=== PATIENT | female | born 1995 | race Caucasian/White ===

== ENCOUNTER 2018-08-05 22:20 | Emergency (ER) | payer OTHER ==
[2018-08-05 23:58] LABS: Absolute Monocytes 1.3 K/uL (0.1-1.3); Absolute Neutrophil 7.7 K/uL (1.8-8.0); Basophils % 0.5 % (0-1.3); Eosinophils % 6.4 % (0-4.4); Hematocrit 39.1 % (36.0-45.0); Lymphocytes % 16.9 % (15.3-44.8); MPV 8.2 fL (7.6-11.3); Monocytes % 11.1 % (3.3-12.3); RBC Red Blood Cell Count 4.34 M/uL (3.86-4.86)
[2018-08-06 00:07] LABS: Urine Blood 3+ (NEG); Urine Glucose NEGATIVE (NEG); Urine Protein TRACE (NEG); Urine pH 6.5 (5.0-7.0)
[2018-08-06 00:23] LABS: BUN Blood Urea Nitrogen 9 mg/dL (7-18); Bicarbonate 24 mmol/L (21-32); Glucose Level 97 mg/dL (74-106); HCG, Quantitative 30062 mIU/mL (1-3); Potassium 3.6 mmol/L (3.5-5.1); Sodium Level 142 mmol/L (136-145)
--- NOTE | 2018-08-06 01:48 | ER ---
Nurse's Notes [facility] Name: Concepcion Griggs Age: 23 yrs Sex: Female : 1995 Arrival Date: 08/05/2018 Time: 22:22 Bed 8 Private MD: Diagnosis: Threatened Presentation: 08/05 22:54 Presenting complaint: Patient states: "I am having heavy bleeding about 1 hour prior to jd3 arrival. it has soaked my underwear and my pants. I have had 2 miscarriages before.". Transition of care: patient was not received from another setting of care. Onset of symptoms was August 05, 2018. Risk Assessment: Do you want to hurt yourself or someone else? Patient reports no desire to harm self or others. Initial Sepsis Screen: Does the patient meet any 2 criteria? No. Patient's initial sepsis screen is negative. Does the patient have a suspected source of infection? No. Patient's initial sepsis screen is negative. Care prior to arrival: None. 22:54 Method Of Arrival: Ambulatory j 22:54 Acuity: JOSE 3 jd3 Triage Assessment: 23:07 : Reports vaginal bleeding that is heavy flow. 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 - Social history:: Smoking status: Patient uses tobacco products, stopped in April 2018.. - Ebola Screening: : Patient negative for fever greater than or equal to 101.5 degrees Fahrenheit, and additional compatible Ebola Virus Disease symptoms. Screenin:06 Fall Risk Ambulatory Aid- None/Bed Rest/Nurse Assist (0 pts). Gait- Normal/Bed jd3 Rest/Wheelchair (0 pts) Mental Status- Oriented to own ability (0 pts). Total Lafleur Fall Scale indicates No Risk (0-24 pts). 23:07 Abuse screen: Denies threats or abuse. Nutritional screening: No deficits noted. jd3 Tuberculosis screening: No symptoms or risk factors identified. Assessment: 22:45 General: Appears in no apparent distress. comfortable, Behavior is calm, cooperative, aa1 appropriate for age. Pain: Denies pain. Neuro: Level of Consciousness is awake, alert, obeys commands, Oriented to person, place, time, situation, Moves all extremities. Gait is steady. Cardiovascular: Heart tones S1 S2 present Rhythm is regular. Respiratory: Airway is patent Respiratory effort is even, unlabored, Respiratory pattern is regular, symmetrical. GI: Abdomen is non-distended, Abd is soft and non tender X 4 quads. : Reports vaginal bleeding that is bright red, with clots, moderate flow, Denies cramping. EENT: No signs and/or symptoms were reported regarding the EENT system. Derm: Skin is intact, is healthy with good turgor, Skin is pink, warm \\T\\ dry. Musculoskeletal: Circulation, motion, and sensation intact. Capillary refill < 3 seconds. 08/06 00:37 Reassessment: Patient appears in no apparent distress at this time. Patient and/or aa1 family updated on plan of care and expected duration. Pain level reassessed. Patient is alert, oriented x 3, equal unlabored respirations, skin warm/dry/pink. Blood work resulted; OB u/s ordered. Pt reports vaginal bleeding has stopped Patient denies pain at this time. 01:17 Reassessment: Patient appears in no apparent distress at this time. Patient and/or aa1 family updated on plan of care and expected duration. Pain level reassessed. Patient is alert, oriented x 3, equal unlabored respirations, skin warm/dry/pink. bindery library technical assistant at bedside for study. 02:30 Reassessment: Patient appears in no apparent distress at this time. Patient and/or jd3 family updated on plan of care and expected duration. Pain level reassessed. Patient is alert, oriented x 3, equal unlabored respirations, skin warm/dry/pink. Vital Signs: 08/05 23:01 BP 122 / 60; Pulse 103; Resp 16 S; Temp 98.6(O); Pulse Ox 98% on R/A; Weight 46.27 kg jd3 (R); Height 57 in. (144.78 cm) (R); Pain 0/10; 08/06 00:01 BP 118 / 74; Pulse 98; Resp 16; Pulse Ox 99% on R/A; mt 08/05 23:01 Body Mass Index 22.07 (46.27 kg, 144.78 cm) jd3 ED Course: 08/05 22:22 Patient arrived in ED. am2 22:56 Triage completed. jd3 22:59 Nato Tapia PA is PHCP. jr8 22:59 Kenneth Childs MD is Attending Physician. jr8 22:59 Arielle Grider, RN is Primary Nurse. aa1 23:00 Urine collected: clean catch specimen. aa1 23:04 Arm band placed on. jd3 23:06 Patient has correct armband on for positive identification. Placed in gown. Bed in low jd3 position. Call light in reach. Side rails up X 1. Adult w/ patient. 23:15 Initial lab(s) drawn, by ED staff, sent to lab. Inserted saline lock: 22 gauge in right aa1 antecubital area, using aseptic technique. ,using aseptic technique. by Toby Mejia RN Blood collected. 08/06 01:23 Ultrasound completed. Patient tolerated well. aa4 01:24 OB Limited US In Process Unspecified. EDMS 02:31 No provider procedures requiring assistance completed. IV discontinued, intact, jd3 bleeding controlled, No redness/swelling at site. Pressure dressing applied. Administered Medications: No medications were administered Outcome: 01:48 Discharge ordered by . jr8 02:31 Discharged to home ambulatory, with family. jd3 02:31 Condition: stable 02:31 Discharge instructions given to patient, family, Instructed on discharge instructions, follow up and referral plans. Demonstrated understanding of instructions, follow-up care. 02:32 Patient left the ED. jd3 Signatures: Dispatcher [employer] EDMS Arielle Grider, RN RN aa1 Rebecca Chandra aa4 Nato Tapia PA PA jr8 Rebecca Nazario am2 Adela Patino mt, Jonathon, RN RN jd3
--- NOTE | 2018-08-06 01:48 | EDPHYS ---
Physician Documentation [facility] Name: Concepcion Griggs Age: 23 yrs Sex: Female : 1995 Arrival Date: 08/05/2018 Time: 22:22 Bed 8 Private MD: ED Physician Kenneth Childs HPI: 08/06 00:57 This 23 yrs old Female presents to ER via Ambulatory with complaints of jr8 Vaginal Bleeding, 14 WEEKS PREG. 00:57 The patient presents with vaginal bleeding that is light. Onset: The symptoms/episode jr8 began/occurred acutely, today. Modifying factors: The symptoms are alleviated by nothing, the symptoms are aggravated by nothing. Associated signs and symptoms: The patient has no apparent associated signs or symptoms. Severity of symptoms: At their worst the symptoms were mild, in the emergency department the symptoms have improved. The patient has experienced a previous episode. The patient has not recently seen a physician. Stated that she had gone to the bathroom and shortly after had bleeding that soaked her underwear. No abdominal cramping. Stated that it is much better now. Approximately 15 weeks gestation . 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 - Social history:: Smoking status: Patient uses tobacco products, stopped in April 2018.. - Ebola Screening: : Patient negative for fever greater than or equal to 101.5 degrees Fahrenheit, and additional compatible Ebola Virus Disease symptoms. ROS: 08/06 00:57 Eyes: Negative for injury, pain, redness, and discharge, ENT: Negative for injury, jr8 pain, and discharge, Neck: Negative for injury, pain, and swelling, Cardiovascular: Negative for chest pain, palpitations, and edema, Respiratory: Negative for shortness of breath, cough, wheezing, and pleuritic chest pain, Abdomen/GI: Negative for abdominal pain, nausea, vomiting, diarrhea, and constipation, Back: Negative for injury and pain, MS/Extremity: Negative for injury and deformity, Skin: Negative for injury, rash, and discoloration, Neuro: Negative for headache, weakness, numbness, tingling, and seizure. : Positive for vaginal bleeding. Exam: 00:57 Eyes: Pupils equal round and reactive to light, extra-ocular motions intact. Lids and jr8 lashes normal. Conjunctiva and sclera are non-icteric and not injected. Cornea within normal limits. Periorbital areas with no swelling, redness, or edema. ENT: Nares patent. No nasal discharge, no septal abnormalities noted. Tympanic membranes are normal and external auditory canals are clear. Oropharynx with no redness, swelling, or masses, exudates, or evidence of obstruction, uvula midline. Mucous membranes moist. Neck: Trachea midline, no thyromegaly or masses palpated, and no cervical lymphadenopathy. Supple, full range of motion without nuchal rigidity, or vertebral point tenderness. No Meningismus. Cardiovascular: Regular rate and rhythm with a normal S1 and S2. No gallops, murmurs, or rubs. Normal PMI, no JVD. No pulse deficits. Respiratory: Lungs have equal breath sounds bilaterally, clear to auscultation and percussion. No rales, rhonchi or wheezes noted. No increased work of breathing, no retractions or nasal flaring. Abdomen/GI: Soft, non-tender, with normal bowel sounds. No distension or tympany. No guarding or rebound. No evidence of tenderness throughout. Back: No spinal tenderness. No costovertebral tenderness. Full range of motion. Skin: Warm, dry with normal turgor. Normal color with no rashes, no lesions, and no evidence of cellulitis. MS/ Extremity: Pulses equal, no cyanosis. Neurovascular intact. Full, normal range of motion. Neuro: Awake and alert, GCS 15, oriented to person, place, time, and situation. Cranial nerves II-XII grossly intact. Motor strength 5/5 in all extremities. Sensory grossly intact. Cerebellar exam normal. Normal gait. Vital Signs: 08/05 23:01 BP 122 / 60; Pulse 103; Resp 16 S; Temp 98.6(O); Pulse Ox 98% on R/A; Weight 46.27 kg jd3 (R); Height 57 in. (144.78 cm) (R); Pain 0/10; 08/06 00:01 BP 118 / 74; Pulse 98; Resp 16; Pulse Ox 99% on R/A; mt 08/05 23:01 Body Mass Index 22.07 (46.27 kg, 144.78 cm) jd3 MDM: 08/05 22:59 Patient medically screened. [facility] 08/06 01:47 Data reviewed: vital signs, nurses notes, lab test result(s), radiologic studies, [facility] ultrasound, and as a result, I will discharge patient. Data interpreted: Pulse oximetry: on room air is 99 %. Interpretation: normal. Counseling: I had a detailed discussion with the patient and/or guardian regarding: the historical points, exam findings, and any diagnostic results supporting the discharge/admit diagnosis, lab results, radiology results, the need for outpatient follow up, an OB/Gyne specialist, to return to the emergency department if symptoms worsen or persist or if there are any questions or concerns that arise at home. 08/05 22:59 Order name: Quantitative Hcg; Complete Time: 00:52 [facility] 08/05 22:59 Order name: Abo/rh Typing; Complete Time: 00:52 [facility] 08/05 22:59 Order name: Basic Metabolic Panel; Complete Time: 00:52 [facility] 08/05 22:59 Order name: CBC with Diff; Complete Time: 00:12 08/05 23:45 Order name: Urine Dipstick--Ancillary (enter results); Complete Time: 00:12 [facility] 08/05 23:45 Order name: Urine --Ancillary (enter results); Complete Time: 00:12 [facility] 08/05 22:59 Order name: Urine Test (obtain specimen); Complete Time: 23:39 [facility] 08/05 22:59 Order name: IV Saline Lock; Complete Time: 23:24 [facility] 08/05 22:59 Order name: Labs collected and sent; Complete Time: 23:24 [facility] 08/05 22:59 Order name: NPO; Complete Time: 22:59 [facility] 08/05 22:59 Order name: Urine Dipstick-Ancillary (obtain specimen); Complete Time: 23:39 [facility] 08/06 00:34 Order name: OB Limited [facility]8 Administered Medications: No medications were administered Disposition: 05:21 Co-signature as Attending Physician, Kenneth Childs MD I agree with the assessment and tw4 plan of care. Disposition: 08/06/18 01:48 Discharged to Home. Impression: Threatened . - Condition is Stable. - Discharge Instructions: Threatened Miscarriage, Vaginal Bleeding During , Second Trimester, Pelvic Rest. - Medication Reconciliation Form, Thank You Letter, Antibiotic Education, Prescription Opioid Use form. - Follow up: Private Physician; When: 2 - 3 days; Reason: Recheck today's complaints, Continuance of care, Re-evaluation by your physician. - Problem is new. - Symptoms have improved. Signatures: Dispatcher [employer] EDMS Nato Tapia PA PA jr8 Toby Mejia RN RN Kenneth Oleary MD MD tw4 Corrections: (The following items were deleted from the chart) 02:32 01:48 08/06/2018 01:48 Discharged to Home. Impression: Threatened . Condition jd3 is Stable. Forms are Medication Reconciliation Form, Thank You Letter, Antibiotic Education, Prescription Opioid Use. Follow up: Private Physician; When: 2 - 3 days; Reason: Recheck today's complaints, Continuance of care, Re-evaluation by your physician. Problem is new. Symptoms have improved. jr8
--- NOTE | 2018-08-06 08:12 | RAD REPORT ---
EXAM DESCRIPTION: US - OB Limited - 08/06/2018 1:25 am CLINICAL HISTORY: VAGINAL BLEEDING , pelvic pain COMPARISON: No comparisons FINDINGS: A limited examination was requested. A single cephalic presenting gestation is identified. Heart rate normal. anatomy and biometry was not requested. crown-rump length is 9.3 cm corresponding to 15 weeks 1 day gestational age. NADER 01/27/2019. The placenta is grade 0, posterior in location. No placenta previa. The amniotic fluid volume is normal. The maternal adnexa show no worrisome findings. IMPRESSION: Limited obstetrical sonography as detailed above.
== END 2018-08-06 02:32 | disposition home or self-care (01) ==
LOC: ER 22:20
DX: O20.0 Threatened abortion (principal); O26.892 Other specified pregnancy related conditions, second trimester; Z3A.15 15 weeks gestation of pregnancy; Q25.6 Stenosis of pulmonary artery; Z87.891 Personal history of nicotine dependence
CPT/HCPCS: 36415; 76815; 80048; 81003; 81025; 84702; 85025; 86900; 86901; 99283

== ENCOUNTER 2018-12-06 15:37 | Observation (INO) | payer BC ==
[2018-12-06] MEDS ORDERED: TERBUTALINE SULF 1 MG/1ML SQ ONE (16:14)
[2018-12-06] MEDS ORDERED: BUTORPHANOL 1 MG/ML INJ IV ONE (16:58)
[2018-12-06] MEDS ORDERED: PROMETHAZINE 25 MG/ML VIAL IM ONE (16:58)
[2018-12-06] MEDS ORDERED: BETAMET ACET/BETAMET NA PH 6 MG/ML VIAL IM ONE (16:58)
[2018-12-06] MEDS ORDERED: BUTORPHANOL 1 MG/ML INJ IM ONE (17:00)
[2018-12-06] MEDS ORDERED: ACETAMINOPHEN 325 MG TABLET PO PRN (17:42)
[2018-12-06] MEDS ORDERED: hydrOXYzine HCl 25 MG TAB PO ONE (18:00)
[2018-12-06 19:11] LABS: Urine Appearance CLOUDY; Urine Bilirubin NEGATIVE (NEG); Urine Blood NEGATIVE (NEG); Urine Color YELLOW; Urine Glucose NEGATIVE (NEG); Urine Protein 1+ (NEG); Urine Urobilinogen 0.2 mg/dL (0.2-1.0)
[2018-12-06 20:01] LABS: Urine Bacteria >50 /HPF (<20); Urine Culture Reflex Order REFLEXED; Urine Mucus 2+ /HPF (NONE SEEN); Urine RBC <5 /HPF (NONE SEEN)
[2018-12-06] MEDS: NITROFURAN MACRO 100 MG CAP PO SCH (21:00)
--- NOTE | 2018-12-07 06:46 | P.PN ---
Date of Service: 12/07/18 S- no complaints, does feel some tightening O-Cx, no change, pp high, but contractions may be q4-5 minutes on latest monitor A-uterine irritibility P-Try nifedipine for ctx and observe effect
[2018-12-07] MEDS: NIFEdipine 10 MG CAP PO SCH ×2 (07:37→13:20)
[2018-12-07] MEDS: NITROFURAN MACRO 100 MG CAP PO SCH (07:37)
[2018-12-07] MEDS ORDERED: BETAMET ACET/BETAMET NA PH 6 MG/ML VIAL IM ONE (17:10)
== END 2018-12-07 17:35 | disposition home or self-care (01) ==
LOC: RAD 15:37 → 2ND-WC 17:39
PROVIDERS: ADMIT Specialist; ATTEND Specialist
DX: O47.03 False labor before 37 completed weeks of gestation, third trimester (principal); Z3A.32 32 weeks gestation of pregnancy
CPT/HCPCS: 81001; 87086; 87088; G0378; J0595; J2550; J3105

== ENCOUNTER 2019-01-24 05:06 | Inpatient (IN) | payer BC, OTHER ==
--- NOTE | 2019-01-22 15:10 | PREOPHP ---
Date of Admission: 01/24/2019 Subjective: Ms. Griggs is a 23-year-old female, 3, para 0-0-2-0, at approx imately 39 weeks' gestation. She is admitted for primary section secondary to term pregnanc y with suspected cephalopelvic disproportion. She is scheduled for primary section. has been active. She denies any vaginal bleeding or spotting. Past Medical History: Please see record. Review of Systems: She reports no recent cough, cold, fever, or chills. No recent nausea or vomiting. She denies any b reast lumps or knots. She denies any bowel or bladder issues. has been active. She denies a ny vaginal bleeding. Physical Examination: General: Reveals a short-statured female. Neck: Supple without adenopathy or thyromegaly. Lungs: Clear. Cardiac: Regular rate and rhythm without murmurs. Breasts: Not examined. Abdomen: Estimated weight is 6+ to 7+ pounds. Pelvic not performed today. Vertex has been -2 station, not well applied to the cervix and on abdominal exam today. Vertex is above the pubic bone . Extremities: No cyanosis, clubbing, or edema. Impression: A 39-week , suspected cephalopelvic disproportion. Plan: Because of suspected CPD, we have elected to proceed with primary section. The risks and benefits have been discussed and the patient has signed operative permit in my presence. MANJINDER/LUANNE Voice ID: [id number]
[2019-01-23 09:08] LABS: RPR Titer ND
[2019-01-23 09:16] LABS: Absolute Lymphocytes (CBC) 1.4 K/uL (0.7-4.9); Basophils % 0.6 % (0-1.3); Eosinophils % 5.6 % (0-4.4); Hematocrit 41.4 % (36.0-45.0); MPV 9.7 fL (7.6-11.3); Monocytes % 8.6 % (3.3-12.3); RBC Red Blood Cell Count 4.75 M/uL (3.86-4.86)
[2019-01-23 09:24] LABS: Urine Appearance CLOUDY; Urine Bilirubin NEGATIVE (NEG); Urine Blood 1+ (NEG); Urine Color DK YELLOW; Urine Glucose NEGATIVE (NEG); Urine Protein 1+ (NEG); Urine Specific Gravity >=1.030 (1.005-1.030); Urine Urobilinogen 0.2 mg/dL (0.2-1.0)
[2019-01-23 09:37] LABS: Urine Bacteria 20-50 /HPF (<20)
[2019-01-23 09:38] LABS: Urine Amorphous Sediment 2+ /HPF (NONE SEEN); Urine Culture Reflex Order REFLEXED
[2019-01-23 22:02] LABS: RPR (Rapid Plasma Reagin) NON-REACT (NON-REACT)
[2019-01-24] MEDS ORDERED: Ringers Lactate 1,000 ML IV PRN (05:29)
[2019-01-24] MEDS ORDERED: NA CIT/CITRIC AC 30 ML ORAL UDC PO ONE (05:35)
[2019-01-24] MEDS ORDERED: Ringers Lactate 1,000 ML IV SCH (06:00)
[2019-01-24] MEDS ORDERED: METOCLOPRAMIDE 10 MG/2mL INJ IV SCH (06:00)
[2019-01-24] MEDS ORDERED: CLINDAMYCIN INJ 600 MG in NA CHLORIDE 0.9% 50 ML IV ONE (06:30)
[2019-01-24] MEDS ORDERED: GENTAMICIN 80 MG/100 ML BAG 80 MG/100 ML BAG IV ONE (06:30)
[2019-01-24] MEDS ORDERED: MIDAZOLAM HCL 2 MG/2 ML INJ ONE (08:21)
[2019-01-24] MEDS ORDERED: OXYTOCIN 10 UNIT/ML ML IV ONE (08:21)
[2019-01-24] MEDS ORDERED: Phenylephrine HCl 10 MG/ML 1 ML VIAL ONE (08:21)
[2019-01-24] MEDS ORDERED: MORPHINE SULFATE/PF 1 MG/ML (10 ML AMP) ONE (08:21)
[2019-01-24] MEDS ORDERED: PROPOFOL 200 MG/20 ML VIAL IV ONE (08:21)
[2019-01-24] MEDS ORDERED: FENTANYL CITR 250 MCG/5 ML ONE (08:21)
[2019-01-24] MEDS ORDERED: EPHEDRINE SULF 50 MG/ML VIAL ONE (08:21)
[2019-01-24] MEDS ORDERED: KETAMINE HCL 500 MG/5 ML VIAL ONE (08:29)
[2019-01-24] MEDS ORDERED: METHYLERGONOVINE 0.2MG/ML AMP IM PRN (08:43)
[2019-01-24] MEDS ORDERED: ONDANSETRON 4 MG (ODT) TAB PO PRN (08:43)
[2019-01-24] MEDS ORDERED: METHYLERGONOVINE 0.2 MG TAB PO PRN (08:43)
[2019-01-24] MEDS ORDERED: CARBOPROST TROME 250 MCG/ML IM PRN (08:43)
[2019-01-24] MEDS ORDERED: Oxycodone HCl/Acetaminophen 1 TAB TAB PO PRN (08:43)
[2019-01-24] MEDS ORDERED: SUCCINYLCHOLINE 20 MG/ML (10 ML) IV ONE (08:47)
--- NOTE | 2019-01-24 08:49 | P.BOP ---
Preoperative diagnosis: 39 week , CPD Postoperative diagnosis: Same, viable male Primary procedure: Designer/Writer: Odalis Guthrie Estimated blood loss: Less than 800ml Specimen: placenta Anesthesia: Spinal Drain(s): Urinary catheter Transferred to: Other (276) Condition: Good
[2019-01-24] MEDS ORDERED: FAMOTIDINE 20 MG/2 ML VIAL IV SCH (09:00)
[2019-01-24] MEDS: OXYTOCIN/LR 20 UNIT/1,000 ML BAG IV SCH ×2 (09:00→16:45)
[2019-01-24] MEDS: KETOROLAC 30 MG/ML INJ IV PRN ×2 (10:00→16:50)
[2019-01-24] MEDS ORDERED: PROMETHAZINE 25 MG/ML VIAL IV ONE (10:25)
[2019-01-24] MEDS ORDERED: PROMETHAZINE 25 MG/ML VIAL IV PRN (10:25)
[2019-01-24] MEDS ORDERED: PROMETHAZINE 25 MG/ML VIAL ONE (10:47)
[2019-01-24 14:40] VITALS: BMI 22.9
[2019-01-25] MEDS: OXYTOCIN/LR 20 UNIT/1,000 ML BAG IV SCH ×3 (00:05→17:00)
[2019-01-25 05:39] LABS: Absolute Lymphocytes (CBC) 1.3 K/uL (0.7-4.9); Basophils % 0.4 % (0-1.3); Eosinophils % 6.3 % (0-4.4); Hematocrit 28.3 % (36.0-45.0); Lymphocytes % 10.5 % (15.3-44.8); MPV 9.4 fL (7.6-11.3); Monocytes % 10.9 % (3.3-12.3)
--- NOTE | 2019-01-25 06:43 | P.PN ---
Date of Service: 01/25/19 S-No complaints, bleeding minimal, no pain O-Afeb, vs stable. H/H dropped much more than expected from surgery, despite denials about increased loss by staff/patient. A-PO anemia P-Routine care, IV/soler out, ambulate, advance diet.
[2019-01-25] MEDS: IBUPROFEN 400 MG TAB PO PRN ×2 (08:11→16:02)
[2019-01-25 18:40] LABS: HBsAG Nonreactive (Nonreactive)
[2019-01-26] MEDS: IBUPROFEN 400 MG TAB PO PRN (03:56)
[2019-01-26 07:23] VITALS: BP 115/58; TEMP 97; O2SAT 97
--- NOTE | 2019-01-26 07:36 | DS ---
Final Hospital Discharge Diagnoses: 39-week , cephalopelvic disproportion, delivery of viab le male infant. Complications: Postoperative blood loss anemia. Procedures: Spinal block anesthesia, primary section, delivery of viable male . Hospital Course: The patient is a 23-year-old female, 3, para 0-0-2-0 at 3 9 weeks gestation admitted for elective primary section secondary to suspected cephalopelvic disproportion. She delivered a 6 pounds 6 ounce male by primary section with spinal block anesthesia. Postoperative course was accomplished. She was dismissed on the second postopera tive day. Her postoperative course was complicated by a drop in hematocrit postoperatively from the admission hemoglobin and hematocrit of 14.2 and 41.4 to 9.7 and 28.3. She tolerated this well, was a ble to ambulate and perform postoperative course as expected. She was dismissed with Tylenol No. 3, #15 for pain relief, to continue taking her iron and vitamins and with a script for Bactrim DS 1 p.o. b.i.d. for 5 days because of a urine which showed 10,000 to 100,000 colonies of mixed colon y count, so this may have been a contaminated specimen, but because also she had a very low-grade 99. 6 temperature prior to dismissal. She was dismissed with the usual postcesarean section activity res trictions to be seen back in my office in approximately 7 days. She is Rh positive blood type, rubel la immune. MANJINDER/LUANNE Voice ID: [id number] Report ID: [id number]
--- NOTE | 2019-01-27 16:10 | OP ---
Surgeon: Medardo Huizar MD Animal Technician: Dr. Guthrie. Preoperative Diagnoses: A 39-week , cephalopelvic disproportion. Procedure: Spinal block anesthesia, primary section, delivery of viable male . Postoperative Diagnosis: A 39-week , cephalopelvic disproportion. Description Of Procedure: After satisfactory level of spinal block anesthesia was obtained and the p atient received 600 mg of Cleocin and 80 mg of gentamicin preoperatively for prophylaxis with Matias c atheter in place, she was prepped and draped in the usual fashion for abdominal surgery. A Pfannenst iel skin incision was made, carried down to the fascia, fascia incised with a combination of sharp an d blunt dissection. This was from the underlying rectus muscles. These were divided in th e midline. The peritoneum identified and incised. Vesicouterine peritoneum incised. Bladder flap d eveloped. A low-transverse uterine incision was made. A 6 pounds 7 ounce male infant, 9 and 9 was delivered vertex presentation with cord around the neck x2. Cord was milked toward the . Cord was clamped, cut, and the infant placed in a warmer. Cord blood was obtained. The placenta wa s manually removed. The uterus was then exteriorized. The cervix was dilated from above with a ring clamp which was passed from the operative field. The uterus was closed in 2 layers utilizing 0 Vicr yl suture in a running nonlocking fashion, second layer used to imbricate the first layer. Vesicoute rine peritoneum approximated with a running suture of 3-0 Vicryl. The uterus was returned to the per itoneal cavity, which was cleaned of amniotic fluid, debris, and blood clot. The muscles were approx imated in midline with simple sutures of 0 Vicryl. The fascia was closed with a running suture of #1 Vicryl from either margin to the middle. The subcutaneous tissue approximated with simple suture of 3-0 Vicryl, subdermal suture of 3-0 Vicryl, and subcuticular suture of 4-0 Monocryl. The patient wa s returned to the recovery room in satisfactory condition with Matias catheter in place. SCDs in plac e. Anesthesia: Lolis Bashir CRNA and Dr. Chaudhry for anesthesia. Estimated Total Blood Loss: Less than 800 cc. Counts: Sponge and needle counts were correct x2. MPG/MODL Voice ID: [id number] Report ID: [id number]
== END 2019-01-26 09:40 | disposition home or self-care (01) | DRG 787 ==
LOC: 2ND-WC 05:06
PROVIDERS: ADMIT Specialist; ATTEND Specialist
PROC: 10D00Z1 Extraction of Products of Conception, Low, Open Approach (ICD-10-PCS; principal; 2019-01-24 07:30)
DX: O65.4 Obstructed labor due to fetopelvic disproportion, unspecified (principal); D62 Acute posthemorrhagic anemia; O99.02 Anemia complicating childbirth; O69.81X0 Labor and delivery complicated by cord around neck, without compression, not applicable or unspecified; Z3A.39 39 weeks gestation of pregnancy; Z37.0 Single live birth
CPT/HCPCS: 36415; 81001; 85025; 86592; 86850; 86900; 86901; 87086; 87088; 87340; 88307; J0330; J1580; J2250; J2370; J2550; J2590; J2704; J2765; J3010